=== PATIENT | female | born 1985 | race Caucasian/White ===

== ENCOUNTER 2022-09-11 12:54 | Emergency (ER) | payer BC ==
[~2022-09-11] VITALS: Ht 170.2 cm; Wt 81.6 kg
--- NOTE | 2022-09-11 13:00 | NUR ---
BIBS FOR LEFT SIDED BREAST PAIN. A/O X 3, ABLE TO MAKE NEEDS KNOWN, TOLERATING WELL ON ROOM AIR.
--- NOTE | 2022-09-11 13:00 | NUR ---
Called NO response
--- NOTE | 2022-09-11 14:28 | NUR ---
BLOOD SAMPLES OBTAINED
[2022-09-11] MEDS ORDERED: KETOROLAC TROMETHAMINE INJ 60 MG/2 ML VIAL IM ONE (14:30)
[2022-09-11 14:46] LABS: BASOPHILS % (AUTO) 0.3 % (0.0-2.0); EOSINOPHILS % (AUTO) 1.3 % (0.0-6.0); HEMATOCRIT 43 % (33-45); HEMOGLOBIN 14.4 g/dL (11.5-14.8); LYMPHOCYTES # (AUTO) 2.5 K/uL (0.8-4.8); MEAN CORPUSCULAR HGB CONC 33 g/dl (31.0-36.0); MEAN CORPUSCULAR VOLUME 93 fL (82-100); MONOCYTES # (AUTO) 0.9 K/uL (0.1-1.30); MONOCYTES % (AUTO) 6.5 % (2.0-12.0); NEUTROPHILS # (AUTO) 10.8 K/uL (1.8-8.9); NEUTROPHILS % (AUTO) 74.9 % (43.0-81.0); PLATELET COUNT (AUTO) 280 K/uL (150-450); RED BLOOD CELL COUNT(AUTO) 4.63 MIL/uL (4.0-5.2); WHITE BLOOD COUNT (AUTO) 14.5 K/uL (4.3-11.0)
[2022-09-11] MEDS ORDERED: KETOROLAC TROMETHAMINE INJ 30 MG/ML VIAL ONE (14:47)
[2022-09-11] MEDS ORDERED: CYCL5TAB PO (15:18)
[2022-09-11 15:23] LABS: CALCIUM, SERUM 9.1 mg/dL (8.5-10.1); CARBON DIOXIDE 25 mmol/L (21-32); CHLORIDE 107 mmol/L (98-107); CREATININE 0.7 mg/dL (0.6-1.3); GLUCOSE 93 mg/dL (74-106); SODIUM SERUM 142 mmol/L (136-145); UREA NITROGEN, BLOOD 14 mg/dL (7-18)
[2022-09-11 15:27] LABS: ALANINE AMINOTRANSFERASE 22 U/L (12-78); ALBUMIN 4.1 g/dL (3.4-5.0); ASPARTATE AMINOTRANSFERASE 18 U/L (15-37); BILIRUBIN,DIRECT 0.1 mg/dL (0.0-0.2); BILIRUBIN,TOTAL 0.5 mg/dL (0.2-1.0); TOTAL PROTEIN, SERUM 7.2 g/dL (6.4-8.2)
[2022-09-11] MEDS ORDERED: CYCLOBENZAPRINE 10 MG TABLET ONE (15:29)
[2022-09-11] MEDS ORDERED: CYCLOBENZAPRINE 10 MG TABLET PO ONE (15:30)
[2022-09-11 17:08] LABS: ALKALINE PHOSPHATASE 76 U/L (46-116)
[2022-09-11] MEDS ORDERED: IBUP-1955 PO (17:55)
[2022-09-11] MEDS ORDERED: LIDO30AD10 TP (17:55)
[2022-09-11 18:16] VITALS: BP 118/80
== END 2022-09-11 18:17 | disposition home or self-care (01) ==
LOC: ER 13:06
DX: M94.0 Chondrocostal junction syndrome [Tietze] (principal); M62.838 Other muscle spasm
CPT/HCPCS: 99285; 71045; 96372; 93005; 76642; 85025; 80048; 80076; 36415; 84484; 84702; J1885